=== PATIENT | female | born 1960 | race Hispanic/Latino ===

== ENCOUNTER 2021-02-24 01:09 | Emergency (ER) | payer BC ==
[~2021-02-24] VITALS: Ht 157.5 cm; Wt 104.3 kg
[2021-02-24] MEDS ORDERED: KETOROLAC TROMETHAMINE 60 MG/2 ML VIAL IM ONE (01:45)
[2021-02-24] MEDS ORDERED: ORPHENADRINE CITRATE 30 MG/ML VIAL IM ONE (01:45)
[2021-02-24] MEDS ORDERED: KETOROLAC TROMETHAMINE 60 MG/2 ML VIAL ONE (01:51)
== END 2021-02-24 03:11 | disposition home or self-care (01) ==
LOC: ER 01:15
DX: M25.562 Pain in left knee (principal); M54.32 Sciatica, left side; I10 Essential (primary) hypertension; E78.5 Hyperlipidemia, unspecified
CPT/HCPCS: 73562; 99283; J1885; J2360

== ENCOUNTER 2021-05-03 12:55 | Outpatient (RCR) | payer BC | END 2021-05-26 | LOC: PT 12:55 | PROVIDERS: ATTEND Specialist | DX: M17.12 Unilateral primary osteoarthritis, left knee (principal) ==